=== PATIENT | female | born 2000 | race Caucasian/White ===

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

== ENCOUNTER 2020-07-02 11:03 | Inpatient (IN) ==
[2020-07-02] MEDS ORDERED: ONDANSETRON 4 MG TAB.RAPDIS PO PRN (11:07)
[2020-07-02] MEDS ORDERED: LIDOCAINE HCL 50 ML VIAL PERI PRN (11:07)
[2020-07-02] MEDS ORDERED: RINGER'S SOLUTION,LACTATED 1,000 ML IV PRN (11:07)
[2020-07-02] MEDS ORDERED: BUTORPHANOL TARTRATE 2 MG/ML VIAL IV PRN ×2 (11:07)
[2020-07-02] MEDS ORDERED: RINGER'S SOLUTION,LACTATED 1,000 ML IV ONE (11:07)
[2020-07-02] MEDS ORDERED: PENICILLIN G POTASSIUM 5 MILLIONUNT in DEXTROSE 5 % IN WATER 100 ML IV ONE ×2 (11:07)
[2020-07-02] MEDS ORDERED: OXYTOCIN/0.9 % SODIUM CHLORIDE 30 UNITS/500 ML BAG IV ONE (11:07)
[2020-07-02 11:42] LABS: Hematocrit 34.4 % (37.0-47.0); Hemoglobin 11.7 gm/dL (12.5-16.0); Mean Cell Volume 89.4 fl (78-100); Mean Corpuscular Hemoglobin 30.4 pg (27-31); Mean Platelet Volume 10.8 fl (8-12.5); Neutrophil # 6.8 K/mm3 (1.3-6.0); Neutrophil % 67.3 % (42-75.0); Platelet Count 298 K/mm3 (150-450); Red Blood Count 3.85 M/mm3 (4.2-5.4); Red Cell Distribution Width 13.1 % (11.5-14.0); White Blood Count 10.1 K/mm3 (4.0-10.5)
[2020-07-02] MEDS: PENICILLIN G POTASSIUM 2.5 MILLIONUNT in DEXTROSE 5 % IN WATER 100 ML IV SCH ×6 (15:52→23:51)
--- NOTE | 2020-07-02 16:36 | HP ---
Chief Complaint - Chief Complaint Date of Service: 07/02/20 Time of Service: 16:28 Chief Complaint: SROM History of Present Illness: 20 year old at 39w 3d who presented to the office today complaining of leakage of fluid at around 10 pm, then 2 am and 5 am. She was nitrazine positive in the office and there was pooling of fluid. She denies vb. Fetus is active. Medical History (Last Reviewed 07/02/20 @ 16:33 by Cynthia Freed MD) Not immune to rubella (Acute) MMR Abdominal cramping, gestational (Acute) Resolved Patient may take Tylenol 1000mg PRN for cramping Vomiting or nausea of (Acute) Screening for cervical cancer (Acute) Pap collected today Nevus (Acute) Onset Date: ~02/04/13 Epistaxis (Acute) Onset Date: ~02/04/13 Asthma (Chronic) Onset Date: ~12/08/11 The patient is not currently using her inhaler. Continue to monitor symptoms Ovarian cyst (Acute) Migraine (Acute) Surgical History: Surgical History (Last Reviewed 07/02/20 @ 16:33 by Cynthia Freed MD) [place] teeth extracted (Acute) Onset Date: ~06/17/13 Family History: Family History (Last Reviewed 07/02/20 @ 16:33 by Cynthia Freed MD) Grandmother Bone cancer Breast cancer Cervical cancer Grandfather Lung cancer Social History: (Last Reviewed 07/02/20 @ 16:33 by Cynthia Freed MD) Social History: adopted: No Marital status: household members: family, significant other number of children: 0 current occupational status: employed current occupation: [employer] Highest education level completed: some college, no degree Sexually Active: Yes Service: No Tobacco: Smoking Status: Never smoker Alcohol: alcohol intake: never Substance Use: substance use type: does not use Dietary Habits: caffeine: No Pets: pets and animals: cat(s) Review Of Systems (GEN) - Review of Systems Generalized/Overall Review: Present: No Symptoms Reported Misc: All systems neg except as marked Immunizations: IMMUNIZATION HX Immunizations Up to Date Yes History of Influenza Vaccine No Allergies/Adverse Reactions: Allergies Allergy/AdvReac Type Severity Reaction Status Date / Time No Known Allergies Allergy Verified 07/02/20 10:34 Home Medications: HOME MEDICATIONS Albuterol Sulfate [Proair Hfa] 2 puff IH QID PRN 07/06/15 [Last Taken 05/03/20] vitamin no.138-folic acid 400 mcg-dha 25 mg chewable tablet 1 tab PO DAILY 11/27/19 [Last Taken 07/01/20 2100] Ferrous Sulfate [Iron] 325 mg PO DAILY 07/02/20 [Last Taken 07/02/20 0900] Exam - Exam Vital Signs: Vital Signs - Last Taken Temp 36.7 C 07/02/20 12:22 Pulse 79 07/02/20 12:22 Resp 18 07/02/20 12:22 BP 125/73 07/02/20 12:22 Pulse Ox 99 07/02/20 12:22 Constitutional: Present: Alert, Oriented x3, Cooperative, No distress ENT Exam: Present: hearing grossly normal Eye Exam: bilateral eye: normal inspection Neck: Present: normal inspection Back Exam: Present: normal inspection Breasts: Present: Exam deferred Respiratory: Present: lungs clear, normal breath sounds, no respiratory distress Cardiovascular/Chest: Present: regular rate, rhythm Abdomen: Present: soft, nontender, nondistended Extremity: Present: non-tender, no calf tenderness Skin Exam: Present: normal color, warm/dry, no cyanosis Neurologic: Present: alert, normal mood/affect, oriented x 3 Appearance: Present: appropriate appearance, appropriate insight, neat, no memory impairment Eye contact: Present: cooperative, good eye contact, normal speech Thoughts: Present: normal thought pattern Diagnostic Studies: Abnormal Lab Results 07/02/20 Range/Units 11:30 RBC 3.85 L (4.2-5.4) M/mm3 Hgb 11.7 L (12.5-16.0) gm/dL Hct 34.4 L (37.0-47.0) % Immature Gran % (Auto) 0.50 H (0.001-0.429) % Immature Gran # (Auto) 0.05 H (0.000-0.0310) K/mm3 Neutrophils # 6.8 H (1.3-6.0) K/mm3 Laboratory Results WBC 10.1 K/mm3 (4.0-10.5) 07/02/20 11:30 RBC 3.85 M/mm3 (4.2-5.4) L 07/02/20 11:30 Hgb 11.7 gm/dL (12.5-16.0) L 07/02/20 11:30 Hct 34.4 % (37.0-47.0) L 07/02/20 11:30 MCV 89.4 fl (78-100) 07/02/20 11:30 MCH 30.4 pg (27-31) 07/02/20 11:30 MCHC 34.0 g/dl (32-36) 07/02/20 11:30 RDW 13.1 % (11.5-14.0) 07/02/20 11:30 Plt Count 298 K/mm3 (150-450) 07/02/20 11:30 MPV 10.8 fl (8-12.5) 07/02/20 11:30 Immature Gran % (Auto) 0.50 % (0.001-0.429) H 07/02/20 11:30 Immature Gran # (Auto) 0.05 K/mm3 (0.000-0.0310) H 07/02/20 11:30 Neutrophils % 67.3 % (42-75.0) 07/02/20 11:30 Lymphocytes % 24.7 % (20-51) 07/02/20 11:30 Monocytes % 5.8 % (0.0-9) 07/02/20 11:30 Eosinophils % 1.4 % (0.0-3.0) 07/02/20 11:30 Basophils % 0.3 % (0.0-1.0) 07/02/20 11:30 Nucleated RBC % 0.0 k/mm3 (0-1) 07/02/20 11:30 Neutrophils # 6.8 K/mm3 (1.3-6.0) H 07/02/20 11:30 Lymphocytes # 2.48 k/mm3 (1.5-3.5) 07/02/20 11:30 Monocytes # 0.6 k/mm3 (0.0-1.0) 07/02/20 11:30 Eosinophils # 0.1 k/mm3 (0.0-0.7) 07/02/20 11:30 Absolute Basophils 0.0 k/mm3 (0.0-0.1) 07/02/20 11:30 Blood Type O Positive 07/02/20 11:30 Antibody Screen Negative 07/02/20 11:30 Assessment/Plan - Narrative Narrative: 20 year old at 39w 3d 1. SROM: pitocin started since the patient is not in labor 2. GBS positive: PCN prophylaxis
[2020-07-02] MEDS ORDERED: ONDANSETRON HCL/PF 2 MG/ML VIAL IV PRN (17:26)
[2020-07-02] MEDS ORDERED: BUPIVACAINE HCL/0.9 % NACL/PF 250 ML EP PRN (17:26)
[2020-07-02] MEDS ORDERED: NALOXONE HCL 1 MG/1 ML SYRG IV PRN (17:26)
[2020-07-02] MEDS ORDERED: BUPIVACAINE HCL/PF 30 ML VIAL EP SCH (17:30)
--- NOTE | 2020-07-02 17:52 | ANES ---
Anesthesia Pre Procedure Eval Vitals/Labs: Last Vital Signs Temp 36.7 C 07/02/20 12:22 Pulse 79 07/02/20 12:22 Resp 18 07/02/20 12:22 BP 125/73 07/02/20 12:22 Pulse Ox 99 07/02/20 12:22 HOME MEDICATIONS Albuterol Sulfate [Proair Hfa] 2 puff IH QID PRN 07/06/15 [Last Taken 05/03/20] vitamin no.138-folic acid 400 mcg-dha 25 mg chewable tablet 1 tab PO DAILY 11/27/19 [Last Taken 07/01/20 2100] Ferrous Sulfate [Iron] 325 mg PO DAILY 07/02/20 [Last Taken 07/02/20 0900] Allergies/Adverse Reactions: Allergies Allergy/AdvReac Type Severity Reaction Status Date / Time No Known Allergies Allergy Verified 07/02/20 10:34 - Planned Procedure Planned Procedure: Labor Epidural Medication List Reviewed:: Yes Allergies Verified: Yes Medical History (Last Reviewed 07/02/20 @ 17:51 by Dandy Vargas CRNA) Not immune to rubella (Acute) MMR Abdominal cramping, gestational (Acute) Resolved Patient may take Tylenol 1000mg PRN for cramping Vomiting or nausea of (Acute) Screening for cervical cancer (Acute) Pap collected today Nevus (Acute) Onset Date: ~02/04/13 Epistaxis (Acute) Onset Date: ~02/04/13 Asthma (Chronic) Onset Date: ~12/08/11 The patient is not currently using her inhaler. Continue to monitor symptoms Ovarian cyst (Acute) Migraine (Acute) Surgical History (Last Reviewed 07/02/20 @ 17:51 by Dandy Vargas CRNA) [place] teeth extracted (Acute) Onset Date: ~06/17/13 Family History (Last Reviewed 07/02/20 @ 17:51 by Dandy Vargas CRNA) Grandmother Bone cancer Breast cancer Cervical cancer Grandfather Lung cancer - Anesthesia Assessment and Plan ASA Class: PS, II Anesthesia Type Plan: Epidural
--- NOTE | 2020-07-02 18:16 | ANES ---
Anesthesia Procedure Note Procedure Note: ANESTHESIA PROCEDURE NOTE Date of Procedure: 07/02/2020. Time of procedure: 1755. Performed by: Dandy Vargas CRNA Armored Service Technician: None. Preprocedure diagnosis: Active labor. Post procedure diagnosis: Same. Procedure: Insertion of labor epidural. Indications: The patient is a 20-year-old female in active labor requesting labor epidural for pain management. Findings: See below. Details of the procedure: The patient was placed in a sitting position. DuraPrep as well as Betadine swabs X3 was applied to the patient's back. Patient was then draped in a sterile fashion. Lidocaine 1% was infiltrated to the skin and subcutaneous tissues at the level of the L3-4 interspace. The epidural space was identified using a 18-gauge Tuohy needle with [id number] technique. Epidural catheter was inserted to a depth of 14 centimeters at skin. Negative test dose was elicited using 3 mL of 1.5% preservative-free lidocaine plus epinephrine 1 200,000. The epidural catheter was then taped and secured in place. A loading dose of 8 mL of 0.25% preservative-free bupivacaine was administered to the epidural catheter after negative aspiration for blood and CSF. EBL: Minimal. Fluids: N/A. Specimen: N/A. Post procedure condition: The patient tolerated the procedure well. No complications were noted. Thank you for this consultation. Dandy Vargas CRNA
--- NOTE | 2020-07-02 18:17 | ANES ---
Post Anesthesia Assessment - Vital Signs Vitals: Last Vital Signs Temp 36.7 C 07/02/20 12:22 Pulse 79 07/02/20 12:22 Resp 18 07/02/20 12:22 BP 125/73 07/02/20 12:22 Pulse Ox 99 07/02/20 12:22 Airway Patency: Normal - Mental Status Level Of Consciousness: Awake - N/V Assessment Nausea/Vomiting Presence: None Dehydration:: No
[2020-07-03] MEDS ORDERED: HYDROcodone/ACETAMINOPHEN 1 EACH TABLET PO PRN ×2 (04:37)
[2020-07-03] MEDS ORDERED: OXYTOCIN/0.9 % SODIUM CHLORIDE 30 UNITS/500 ML BAG IV ONE (04:37)
[2020-07-03] MEDS ORDERED: GLYCERIN/WITCH HAZEL LEAF 40 APPL BOX TP PRN (04:37)
[2020-07-03] MEDS ORDERED: HYDROCORTISONE 30 APPL TUBE TP PRN (04:37)
[2020-07-03] MEDS ORDERED: SENNOSIDES 8.6 MG TABLET PO PRN (04:37)
[2020-07-03] MEDS ORDERED: BISACODYL 10 MG SUPP.RECT RC PRN (04:37)
[2020-07-03] MEDS ORDERED: diphenhydrAMINE HCL 25 MG CAPSULE PO PRN (04:37)
[2020-07-03] MEDS ORDERED: BENZOCAINE/MENTHOL 81 SPRAY CAN TP PRN (04:37)
--- NOTE | 2020-07-03 04:37 | OR ---
Operative Report - Dictated Report Narrative: Date of delivery: 07/03/2020 Time of delivery: 341 Gender: male weight: 3297 grams APGARS: 07/08 Procedure: , repair of transverse vaginal septum Description of the procedure: The patient is a 20 year old at 39w 4d who presented to the office for a routine obstetrical visit on 07/02/2020 and reported loss of fluid since 07/01/2020 at 2000 and was found to be ruptured. She was not in labor and thus she was started on pitocin. She progressed to complete dilati on. I noted a transverse vaginal septum and cut the septum in the midline to allow for delivery of the vertex. The patient delivered a viable male infant in ANGEL presentation. A tight nuchal cord was noted and thus the cord was cut at the perineum. The shoulders delivered without any difficulty followed by the rest of the . Cord blood was collected. The placenta was delivered by expression and appeared intact. Attention was then turned to the vaginal septum. Both portions of the septum were identified and the septum was trimmed further to achieve better cosmesis. The septum was repaired with 3-0 rapide suture both inferiorly and superiorly. Hemostasis was adequate. There were no lacerations. EBL: 300 mL Complications: none Specimens: cord blood, placenta History for Definition: * The number of deliveries resulting in a live the patient experienced prior to current hospitalization * The previous delivery of live twins or any live multiple gestation is considered one live event. *If primagravida or nulliparous is documented select zero for the number of previous live births. Live Events: 0
[2020-07-03] MEDS: DOCUSATE SODIUM 100 MG CAPSULE PO SCH ×2 (10:39→20:52)
[2020-07-03] MEDS: IBUPROFEN 800 MG TABLET PO PRN ×2 (10:39→18:30)
[2020-07-04] MEDS: IBUPROFEN 800 MG TABLET PO PRN ×3 (06:53→23:01)
[2020-07-04] MEDS: DOCUSATE SODIUM 100 MG CAPSULE PO SCH ×3 (06:53→20:36)
--- NOTE | 2020-07-04 09:45 | PN ---
Subjective - Date and Time Seen Date: 07/04/20 Time: 09:45 Objective - Vitals Vitals: Last Vital Signs Temp 36.2 C 07/04/20 06:55 Pulse 69 07/04/20 06:55 Resp 18 07/04/20 06:55 BP 130/72 07/04/20 06:55 Pulse Ox 99 07/04/20 06:55 Patient denies complaints. Breast-feeding Lochia wnl abdomen - soft, nontender Uterus -firm, at umbilicus - 1 No calf tenderness Impression: day #1 - s/p spontaneous vaginal delivery. Plan: Continue routine care Cauti Physician Documentation - Urinary Catheter Management Urethral ([place]) Date of Insertion: 07/02/20 Time of Insertion: 18:30 Date of Removal: 07/03/20 Time of Removal: 03:00
[2020-07-05 08:39] VITALS: BP 123/70
[2020-07-05] MEDS: DOCUSATE SODIUM 100 MG CAPSULE PO SCH ×3 (11:59→21:55)
--- NOTE | 2020-07-05 12:23 | PN ---
Subjective - Date and Time Seen Date: 07/05/20 Time: 12:22 Objective - Vitals Vitals: Last Vital Signs Temp 36.2 C 07/05/20 08:38 Pulse 76 07/05/20 08:38 Resp 16 07/05/20 08:38 BP 123/70 07/05/20 08:38 Pulse Ox 99 07/05/20 08:38 Patient denies complaints. Lochia wnl abdomen - soft, nontender Uterus -firm, at umbilicus - 2 No calf tenderness Impression: day #2 - s/p spontaneous vaginal delivery. Baby needs to stay extra day for further observation due to low blood sugars Plan: Routine discharge instructions. Board for baby. Cauti Physician Documentation - Urinary Catheter Management Urethral ([place]) Date of Insertion: 07/02/20 Time of Insertion: 18:30 Date of Removal: 07/03/20 Time of Removal: 03:00
[2020-07-05] MEDS: IBUPROFEN 800 MG TABLET PO PRN ×2 (12:44→21:55)
== END 2020-07-05 23:59 | disposition home or self-care (01) | DRG 768 ==
LOC: OB 11:03
PROVIDERS: ADMIT Obstetrics & Gynecology; ATTEND Obstetrics & Gynecology
DX: Z3A.40 40 weeks gestation of pregnancy; O34.63 Maternal care for abnormality of vagina, third trimester; Q52.11 Transverse vaginal septum; O69.81X0 Labor and delivery complicated by cord around neck, without compression, not applicable or unspecified; O42.12 Full-term premature rupture of membranes, onset of labor more than 24 hours following rupture; O99.824 Streptococcus B carrier state complicating childbirth; Z37.0 Single live birth